=== PATIENT | female | born 1930 | race Caucasian/White ===

== ENCOUNTER 2017-10-04 15:44 | Emergency (ER) | payer MEDICARE, BC ==
[2017-10-04] MEDS ORDERED: ASPIRIN 81 MG TAB.CHEW PO ONE (16:15)
[2017-10-04 16:18] LABS: BASO % 1 % (0-3); EOS % 1 % (0-3); HEMATOCRIT 38.4 % (36.0-47.0); HEMOGLOBIN 12.8 g/dL (12.0-15.5); LYMPH # 3.3 x10^3/uL (1.0-4.8); LYMPH % 43 % (24-48); MEAN CORPUSCULAR HEMOGLOBIN 31 pg (25-35); MEAN CORPUSCULAR HGB CONC 33 g/dL (31-37); MEAN CORPUSCULAR VOLUME 94 fL (79-100); MONO # 1.2 x10^3/uL (0.0-1.1); MONO % 16 % (0-9); NEUT % 40 % (31-73); PLATELET COUNT 194 x10^3/uL (140-400); RED BLOOD COUNT 4.11 x10^6/uL (3.50-5.40); RED CELL DISTRIBUTION WIDTH 16.2 % (11.5-14.5); WHITE BLOOD COUNT 7.6 x10^3/uL (4.0-11.0)
[2017-10-04 16:32] LABS: ALBUMIN 3.9 g/dL (3.4-5.0); ALBUMIN/GLOBULIN RATIO 1.3 (1.0-1.7); CREATININE 0.9 mg/dL (0.6-1.0); GFR 59.5; POTASSIUM 4.2 mmol/L (3.5-5.1); TOTAL BILIRUBIN 0.4 mg/dL (0.2-1.0)
--- NOTE | 2017-10-04 16:36 | PHYS DOC ---
Adult General Chief Complaint Chief Complaint: CHEST PAIN HPI HPI 86-year-old female presents with intermittent chest pain today that she describes as a burning sensation that starts in her lower chest and radiates up in her throat. She denies shortness of breath or diaphoresis. Episodes last for about 10 minutes each. She has been having difficulty with belching lately. She has had a history of GERD that she treats intermittently with Tums. She does have omeprazole, but has not been taking it. She has been eating and drinking normally. She denies fever or chills. She has no history of heart trouble. Review of Systems Review of Systems Constitutional: Denies fever or chills [] Eyes: Denies change in visual acuity, redness, or eye pain [] HENT: Denies nasal congestion or sore throat [] Respiratory: Denies cough or shortness of breath [] Cardiovascular: No additional information not addressed in HPI [] GI: Denies vomiting, bloody stools or diarrhea. Some upper abdominal discomfort. [] : Denies dysuria or hematuria [] Musculoskeletal: Denies back pain or joint pain [] Integument: Denies rash or skin lesions [] Neurologic: Denies headache, focal weakness or sensory changes [] Endocrine: Denies polyuria or polydipsia [] All other systems were reviewed and found to be within normal limits, except as documented in this note. Current Medications Current Medications Current Medications Medications (Trade) Dose Ordered Sig/[facility] Start Time Stop Time Status Last Admin Dose Admin Aspirin (Children'S Aspirin) 324 mg 1X ONCE 10/04/17 16:15 10/04/17 16:16 UNV 10/04/17 16:22 324 MG Allergies Allergies Allergies Coded Allergies Type Severity Reaction Last Updated Verified No Known Drug Allergies 10/04/17 No Physical Exam Physical Exam Constitutional: Well developed, well nourished, no acute distress, non-toxic appearance. [] HENT: Normocephalic, atraumatic, bilateral external ears normal, oropharynx moist, no oral exudates, nose normal. [] Eyes: PERRLA, EOMI, conjunctiva normal, no discharge. [] Neck: Normal range of motion, no tenderness, supple, no stridor. [] Cardiovascular:Heart rate regular rhythm, no murmur [] Lungs & Thorax: Bilateral breath sounds clear to auscultation [] Abdomen: Bowel sounds normal, soft, no tenderness, no masses, no pulsatile masses. [] Skin: Warm, dry, no erythema, no rash. [] Back: No tenderness, no CVA tenderness. [] Extremities: No tenderness, no cyanosis, no clubbing, ROM intact, no edema. [] Neurologic: Alert and oriented X 3, normal motor function, normal sensory function, no focal deficits noted. [] Psychologic: Affect normal, judgement normal, mood normal. [] Current Patient Data Lab Results Laboratory Tests Test 10/04/17 15:53 White Blood Count 7.6 x10^3/uL (4.0-11.0) Red Blood Count 4.11 x10^6/uL (3.50-5.40) Hemoglobin 12.8 g/dL (12.0-15.5) Hematocrit 38.4 % (36.0-47.0) Mean Corpuscular Volume 94 fL (79-100) Mean Corpuscular Hemoglobin 31 pg (25-35) Mean Corpuscular Hemoglobin Concent 33 g/dL (31-37) Red Cell Distribution Width 16.2 % (11.5-14.5) H Platelet Count 194 x10^3/uL (140-400) Neutrophils (%) (Auto) 40 % (31-73) Lymphocytes (%) (Auto) 43 % (24-48) Monocytes (%) (Auto) 16 % (0-9) H Eosinophils (%) (Auto) 1 % (0-3) Basophils (%) (Auto) 1 % (0-3) Neutrophils # (Auto) 3.0 x10^3uL (1.8-7.7) Lymphocytes # (Auto) 3.3 x10^3/uL (1.0-4.8) Monocytes # (Auto) 1.2 x10^3/uL (0.0-1.1) H Eosinophils # (Auto) 0.0 x10^3/uL (0.0-0.7) Basophils # (Auto) 0.0 x10^3/uL (0.0-0.2) Troponin I Quantitative < 0.017 ng/mL (0-0.055) EKG EKG Sinus rhythm, rate 78, first-degree heart block, intraventricular block, no ST elevation or depression.[] Radiology/Procedures Radiology/Procedures EXAM: Chest, single view. HISTORY: Epigastric pain. Chest pain. COMPARISON: 07/15/2016. FINDINGS: A frontal view of the chest is obtained. There is no infiltrate, effusion or pneumothorax. The heart is normal in size for portable technique. There is a 1.2 cm left upper lobe pulmonary nodule, more conspicuous compared to the prior study. There are clips overlying the left breast. There is a chronic appearing fracture deformity involving the left proximal humerus. IMPRESSION: 1. No acute pulmonary finding. 2. 1.2 cm left upper lobe pulmonary nodule. This can be better characterized with a CT. Electronically signed by: Roxanne Leal MD (10/04/2017 4:40 PM) [facility] [place] Course & Med Decision Making Course & Med Decision Making Pertinent Labs and Imaging studies reviewed. (See chart for details) The patient's labs are unremarkable. Her troponin was negative. Her EKG was unremarkable. Her chest x-ray did show a pulmonary nodule. I made patient aware of this finding. She does not believe that she's been told this in the past. I encouraged her to follow-up on this with her primary physician. We also gave the patient a GI cocktail which helped with her symptoms. Her chest discomfort had resolved prior to the GI cocktail and moved down into her upper abdomen. It seems likely that she is having reflux symptoms. I have advised that she restart her omeprazole for 2 weeks to see if it helps with this intermittent burning pain. [] Dragon Disclaimer Dragon Disclaimer This electronic medical record was generated, in whole or in part, using a voice recognition dictation system. Departure Departure: Referrals: BRADLY ARIAS (PCP) ALEM VILLATORO DO October 04, 2017 16:36
--- NOTE | 2017-10-04 16:43 | RAD ---
EXAM: Chest, single view. HISTORY: Epigastric pain. Chest pain. COMPARISON: 07/15/2016. FINDINGS: A frontal view of the chest is obtained. There is no infiltrate, effusion or pneumothorax. The heart is normal in size for portable technique. There is a 1.2 cm left upper lobe pulmonary nodule, more conspicuous compared to the prior study. There are clips overlying the left breast. There is a chronic appearing fracture deformity involving the left proximal humerus. IMPRESSION: 1. No acute pulmonary finding. 2. 1.2 cm left upper lobe pulmonary nodule. This can be better characterized with a CT. Electronically signed by: Roxanne Leal MD (10/04/2017 4:40 PM) [facility] [place]
[2017-10-04 18:10] VITALS: BP 149/87
[2017-10-04] MEDS ORDERED: LIDO:MAALOX 1:1 20 ML SINGLE DOSE. PO ONE (18:15)
--- NOTE | 2017-10-05 19:10 | EKG ---
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
== END 2017-10-04 18:18 | disposition home or self-care (01) ==
LOC: ER 15:44
DX: R91.1 Solitary pulmonary nodule (principal); K21.9 Gastro-esophageal reflux disease without esophagitis
CPT/HCPCS: 36415; 71045; 80053; 83880; 84484; 85025; 93005; 99285-25

== ENCOUNTER 2017-10-08 21:35 | Emergency (ER) | payer MEDICARE, BC ==
[2017-10-08] MEDS ORDERED: ASPIRIN 81 MG TAB.CHEW ONE (21:58)
[2017-10-08] MEDS ORDERED: IV NORMAL SALINE 1,000ML 1,000 ML IV SCH (22:06)
[2017-10-08] MEDS: NITROGLYCERIN SUBLINGUAL 0.4 MG BOTTLE OF 25. SL PRN ×2 (22:07→22:13)
[2017-10-08 22:13] VITALS: BP 156/82
[2017-10-08] MEDS ORDERED: HEPARIN for IV BOLUS 10,000 UNIT/10 ML VIAL. IV ONE (22:15)
[2017-10-08] MEDS ORDERED: HEPARIN 25,000UTS/500ML PREMIX 500 ML IV ONE (22:15)
--- NOTE | 2017-10-08 22:17 | EKG ---
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
[2017-10-08 22:24] LABS: BASO # 0.1 x10^3/uL (0.0-0.2); BASO % 1 % (0-3); EOS % 0 % (0-3); HEMATOCRIT 37.9 % (36.0-47.0); HEMOGLOBIN 12.7 g/dL (12.0-15.5); LYMPH # 3.3 x10^3/uL (1.0-4.8); LYMPH % 31 % (24-48); MEAN CORPUSCULAR HEMOGLOBIN 31 pg (25-35); MEAN CORPUSCULAR HGB CONC 34 g/dL (31-37); MEAN CORPUSCULAR VOLUME 93 fL (79-100); MONO # 1.7 x10^3/uL (0.0-1.1); MONO % 16 % (0-9); NEUT # 5.5 x10^3uL (1.8-7.7); NEUT % 52 % (31-73); PLATELET COUNT 176 x10^3/uL (140-400); RED BLOOD COUNT 4.09 x10^6/uL (3.50-5.40); RED CELL DISTRIBUTION WIDTH 15.8 % (11.5-14.5); WHITE BLOOD COUNT 10.6 x10^3/uL (4.0-11.0)
[2017-10-08] MEDS ORDERED: ASPIRIN 81 MG TAB.CHEW PO ONE (22:30)
[2017-10-08 22:32] LABS: HEMOGLOBIN ISTAT 12.9 gm/dL; POTASSIUM ISTAT 4.7 mmol/L (3.5-5.0)
[2017-10-08 22:36] LABS: BILIRUBIN,URINE NEG (NEG); CLARITY,URINE CLOUDY; COLOR,URINE YELLOW; GLUCOSE,URINE 250 mg/dL (NEG); NITRITE,URINE NEG (NEG); UROBILINOGEN,URINE 0.2 mg/dL (0.2 mg/dL)
--- NOTE | 2017-10-08 22:36 | PHYS DOC ---
Past History Past Medical History: Cancer, Diabetes, Hypertension Past Surgical History: Appendectomy, Cholecystectomy, Hysterectomy, Other Alcohol Use: None Drug Use: None Adult General Chief Complaint Chief Complaint: CHEST PAIN-CARDIAC NATURE HPI HPI Patient is a 87 year old female who presents with complaint of chest pain. Patient states that her pain has been worsening throughout the day today. The patient states that she started having chest pain naproxen for days ago. The patient was seen in the emergency department at that time and treated for heartburn symptoms. Patient states initially upon treatment her symptoms had improved, however she states that they did not go completely away. The patient states that she has had continued pain throughout the last 4 days but notes that it has been worsening today. Patient describes the pain as a burning dull pain and on my evaluation rates it 9 out of 10. Admits to nausea and shortness of breath. No fever. Patient denies any known history of cardiac disease. Patient does have history of hyperlipidemia, hypertension, and type 2 diabetes mellitus. Review of Systems Review of Systems Constitutional: Denies fever or chills [] Eyes: Denies change in visual acuity, redness, or eye pain [] HENT: Denies nasal congestion or sore throat [] Respiratory: Shortness of breath[] Cardiovascular: Chest pain[] GI: Nausea, denies abdominal pain, vomiting, bloody stools or diarrhea [] : Denies dysuria or hematuria [] Musculoskeletal: Denies back pain or joint pain [] Integument: Denies rash or skin lesions [] Neurologic: Denies headache, focal weakness or sensory changes [] All other systems were reviewed and found to be within normal limits, except as documented in this note. Current Medications Current Medications Current Medications Medications (Trade) Dose Ordered Sig/Giuliano Start Time Stop Time Status Last Admin Dose Admin Aspirin (Children'S Aspirin) 324 mg 1X ONCE 10/08/17 22:15 10/08/17 22:16 UNV Heparin Sodium (Porcine) (Heparin Sodium) 4,000 unit 1X ONCE 10/08/17 22:15 10/08/17 22:16 UNV Heparin Sodium/ Dextrose 500 ml @ 0 mls/hr 1X ONCE 10/08/17 22:15 10/08/17 22:16 UNV Nitroglycerin (Nitrostat) 0.4 mg PRN Q5MIN PRN 10/08/17 22:15 10/09/17 22:14 UNV Sodium Chloride 1,000 ml @ 125 mls/hr Q8H 10/08/17 22:06 10/09/17 06:05 UNV Allergies Allergies Allergies Coded Allergies Type Severity Reaction Last Updated Verified No Known Drug Allergies 10/04/17 No Physical Exam Physical Exam Constitutional: Alert, afebrile, appears in [id number] discomfort. [] HENT: Normocephalic, atraumatic, bilateral external ears normal, oropharynx moist, no oral exudates, nose normal. [] Eyes: PERRLA, EOMI, conjunctiva normal, no discharge. [] Neck: Normal range of motion, no tenderness, supple, no stridor. [] Cardiovascular:Heart rate regular rhythm, no murmur [] Lungs & Thorax: Bilateral breath sounds clear to auscultation [] Abdomen: Bowel sounds normal, soft, no tenderness, no masses, no pulsatile masses. [] Skin: Warm, dry, no erythema, no rash. [] Back: No tenderness, no CVA tenderness. [] Extremities: No tenderness, no cyanosis, no clubbing, ROM intact, no edema. [] Neurologic: Alert and oriented X 3, normal motor function, normal sensory function, no focal deficits noted. [] Current Patient Data Vital Signs Vital Signs Date Time Temp Pulse Resp B/P (MAP) Pulse Ox O2 Delivery O2 Flow Rate FiO2 10/08/17 22:13 84 156/82 Lab Results Laboratory Tests Test 10/08/17 21:48 10/08/17 22:07 10/08/17 22:11 10/08/17 22:25 Urine Collection Type Unknown Urine Color Yellow Urine Clarity Cloudy Urine pH 7.0 Urine Specific Justice 1.015 Urine Protein Trace Urine Glucose (UA) 250 mg/dL Urine Ketones (Stick) Neg mg/dL Urine Blood Trace Urine Nitrite Neg Urine Bilirubin Neg Urine Urobilinogen Dipstick 0.2 mg/dL Urine Leukocyte Esterase Large Urine RBC 3-5 /HPF Urine WBC 11-20 /HPF Urine Squamous Epithelial Cells Mod /LPF Urine Bacteria Many /HPF White Blood Count 10.6 x10^3/uL Red Blood Count 4.09 x10^6/uL Hemoglobin 12.7 g/dL Hematocrit 37.9 % Mean Corpuscular Volume 93 fL Mean Corpuscular Hemoglobin 31 pg Mean Corpuscular Hemoglobin Concent 34 g/dL Red Cell Distribution Width 15.8 % Platelet Count 176 x10^3/uL Neutrophils (%) (Auto) 52 % Lymphocytes (%) (Auto) 31 % Monocytes (%) (Auto) 16 % Eosinophils (%) (Auto) 0 % Basophils (%) (Auto) 1 % Neutrophils # (Auto) 5.5 x10^3uL Lymphocytes # (Auto) 3.3 x10^3/uL Monocytes # (Auto) 1.7 x10^3/uL Eosinophils # (Auto) 0.0 x10^3/uL Basophils # (Auto) 0.1 x10^3/uL Sodium Level 132 mmol/L Potassium Level 3.8 mmol/L Chloride Level 95 mmol/L Carbon Dioxide Level 26 mmol/L Anion Gap 11 12 mmol/L Blood Urea Nitrogen 12 mg/dL Creatinine 0.9 mg/dL Estimated GFR (Cockcroft-Gault) 59.4 BUN/Creatinine Ratio 13 Glucose Level 205 mg/dL 208 mg/dL Calcium Level 8.8 mg/dL Magnesium Level 2.1 mg/dL Total Bilirubin 0.5 mg/dL Aspartate Amino Transf (AST/SGOT) 86 U/L Alanine Aminotransferase (ALT/SGPT) 29 U/L Alkaline Phosphatase 97 U/L Creatine Kinase 584 U/L Creatine Kinase MB (Mass) 44.7 ng/mL Creatine Kinase MB Relative Index 7.7 % Troponin I Quantitative 8.647 ng/mL Total Protein 7.0 g/dL Albumin 3.8 g/dL Albumin/Globulin Ratio 1.2 Bedside Troponin I 3.87 ng/ml Bedside Hemoglobin 12.9 gm/dL Bedside Hematocrit 38 % Bedside Sodium 129 mmol/L Bedside Potassium 4.7 mmol/L Bedside Chloride 94 mmol/L Bedside Total CO2 28 mmol/L Bedside Blood Urea Nitrogen 17 mg/dL Bedside Creatinine 0.8 mg/dL Bedside Ionized Calcium (Genoveva) 1.00 mmol/L Current Medications Medications (Trade) Dose Ordered Sig/Giuliano Route PRN Reason Start Time Stop Time Status Last Admin Dose Admin Aspirin (Children'S Aspirin) 81 mg STK-MED ONCE .ROUTE 10/08/17 21:58 10/08/17 21:59 DC Aspirin (Children'S Aspirin) 324 mg 1X ONCE PO 10/08/17 22:30 10/08/17 22:31 DC 10/08/17 22:00 Nitroglycerin (Nitrostat) 0.4 mg PRN Q5MIN PRN SL CP RATING > 1/10 10/08/17 22:15 10/09/17 22:14 10/08/17 22:13 Heparin Sodium (Porcine) (Heparin Sodium) 4,000 unit 1X ONCE IV 10/08/17 22:15 10/08/17 22:20 DC Heparin Sodium/ Dextrose 500 ml @ 0 mls/hr 1X ONCE IV 10/08/17 22:15 10/08/17 22:20 DC Sodium Chloride 1,000 ml @ 125 mls/hr Q8H IV 10/08/17 22:06 10/09/17 06:05 EKG EKG Interpreted by me: Heart rate 82, sinus rhythm, prolonged [place] interval, leftward axis, ST elevations in V1 through V3, ST depressions in V4 through V6 knee from previous EKG on October 04, 2017, findings concerning for acute ST segment elevation myocardial infarction[] Radiology/Procedures Radiology/Procedures Not performed[] Course & Med Decision Making Course & Med Decision Making Pertinent Labs and Imaging studies reviewed. (See chart for details) Patient activated as a code STEMI from the emergency department at 2158. I spoke with Dr. Garcia regarding patient who agreed with emergent transfer to [facility] for further evaluation. Patient was given full strength aspirin in the emergency department and treated with nitroglycerin and morphine. The patient was transferred by [facility] emergently to [facility]. Care of patient accepted by Dr. Gricel Zamora. Critical care time excluding procedures: 30 minutes Dragon Disclaimer Dragon Disclaimer This electronic medical record was generated, in whole or in part, using a voice recognition dictation system. Departure Departure: Impression: Primary Impression: STEMI (ST elevation myocardial infarction) Disposition: XFER SHT-TRM HOSP Condition: CRITICAL Referrals: BRADLY ARIAS (PCP) Problem Qualifiers Primary Impression: STEMI (ST elevation myocardial infarction) Involved coronary artery: unspecified coronary artery Qualified Codes: I21.3 - ST elevation (STEMI) myocardial infarction of unspecified site KAYLA AHUJA MD October 08, 2017 22:36
[2017-10-08 22:37] LABS: BACTERIA,URINE MANY /HPF (0-FEW); SQUAMOUS EPITHELIAL CELL,UR MOD /LPF
[2017-10-08 22:48] LABS: ALBUMIN 3.8 g/dL (3.4-5.0); ALBUMIN/GLOBULIN RATIO 1.2 (1.0-1.7); CALCIUM 8.8 mg/dL (8.5-10.1); CREATININE 0.9 mg/dL (0.6-1.0); GFR 59.4; MAGNESIUM 2.1 mg/dL (1.8-2.4); POTASSIUM 3.8 mmol/L (3.5-5.1); TOTAL BILIRUBIN 0.5 mg/dL (0.2-1.0)
== END 2017-10-08 22:20 | disposition short-term general hospital (02) ==
LOC: ER 21:35
DX: I21.3 ST elevation (STEMI) myocardial infarction of unspecified site (principal); E11.9 Type 2 diabetes mellitus without complications; I10 Essential (primary) hypertension; E78.5 Hyperlipidemia, unspecified
CPT/HCPCS: 36415; 80047; 80053; 81001; 82553; 83735; 84484; 85025; 87086; 93005; 99291-25

== ENCOUNTER → 2017-10-14 | Outpatient (CLI) | payer MEDICARE, BC ==
[2017-10-08 22:13] VITALS: BP 156/82
[~2017-10-14] MED LIST: ACET-704 PO; ASPI-630 PO; ATOR40TA59 PO; GLIP5TAB10 PO; LOSA1TAB19 PO; MAGN400T22 PO; METF500T5 PO; METO25TA4 PO; TICA90TA PO
--- NOTE | 2017-10-14 10:34 | RAD ---
CT chest without intravenous contrast History: Pulmonary nodule. Comparison: Chest radiograph October 04, 2017. Technique: Helical CT of the chest was performed without intravenous contrast. Exposure: One or more of the following individualized dose reduction techniques were utilized for this examination: 1. Automated exposure control 2. Adjustment of the mA and/or kV according to patient size 3. Use of iterative reconstruction technique Findings: Visualized thyroid is symmetric. Trachea and mainstem bronchi appear patent. No mediastinal lymphadenopathy is seen. Aortic atherosclerosis is present. Thoracic aorta demonstrates normal caliber. Coronary artery calcifications are seen. No pericardial thickening is identified. Cardiac chambers do not appear enlarged. Small hiatal hernia is seen. No pneumothorax or pleural effusion is identified. No acute airspace disease is seen. Left apex demonstrates a somewhat irregular soft tissue pulmonary nodule which measures 10 mm in maximum axial dimension by 12 mm in craniocaudal dimension (series 2 image 26). At the same level, in the superior segment of the left lower lobe, there is an additional 10 mm soft tissue pulmonary nodule. Left apex demonstrates 6 mm soft tissue pulmonary nodule (series 2 image 11). Left upper lobe demonstrates additional 2 mm pulmonary nodule (series 2 image 17). Right lower lobe adjacent to the major fissure demonstrates 2 mm soft tissue pulmonary nodule (series 2 image 60). 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 Impression: 1. Left upper lobe demonstrates irregular pulmonary nodule measuring millimeter in maximum dimension. Additional, smaller pulmonary nodules are seen scattered within both lungs. 2. By Fleischner 2017 guidelines, recommend a follow-up chest CT in 3 months. Electronically signed by: Tao Johnston MD (10/14/2017 10:30 AM) [facility]
--- NOTE | 2017-10-15 17:25 | HP ---
ADMIT DATE: 10/14/2017 HISTORY OF PRESENT ILLNESS: This is an 87-year-old female patient who was seen at her primary care physician, Yaquelin Escobedo, with a complaint of chest discomfort. She apparently was seen about a week ago with chest pain in the [facility] Emergency Room and was diagnosed with acute ST segment elevation myocardial infarction, and was taken straight to the [facility] where she underwent stent deployment by Dr. Garcia and was discharged last Friday and since then she has not been doing well. She continued to have complaint of chest discomfort associated with shortness of breath. The discomfort is constant, made worse by exertion. She denied any nausea or vomiting. Denied any diaphoresis. She does have some discomfort in her right arm also. She also has had multiple loose bowel movements; however, she said that they changed her metformin from 1000 mg to 500 mg, although it was not on her prescription or the printed paper that she saw me. It was not specific whether they changed it to short acting or extended release form. She has also received multiple antibiotic courses for recurrent urinary tract infection. The last one was at the end of July and basically was admitted for further evaluation, to do 3 sets of cardiac enzyme and EKG and to consult the bag maker. PAST MEDICAL HISTORY: Significant for coronary artery disease, status post myocardial infarction, status post PCI with stent deployment, hypertension, hyperlipidemia, type 2 diabetes, recurrent UTIs, osteoarthritis, lumbar stenosis. She has also history of breast cancer. PAST SURGICAL HISTORY: Significant for PCI with stent deployment, back surgery, mastectomy, cholecystectomy, appendectomy, total abdominal hysterectomy, bilateral salpingo-oophorectomy. She has right fibular fracture, status post open reduction and internal fixation. She underwent colonoscopy twice. ALLERGIES: She has no known drug allergies. She is apparently intolerant to Celebrex. MEDICATIONS: She is currently on Brilinta 90 mg twice a day, atorvastatin calcium 40 mg at bedtime, metoprolol tartrate 25 mg half a tablet twice a day, losartan/hydrochlorothiazide 50/12.5 one tablet once a day, aspirin 81 mg once a day, Tylenol with Codeine 1 tablet every 4-6 hours, magnesium oxide 400 mg daily, metformin 500 mg twice a day, and glipizide 5 mg twice a day. FAMILY HISTORY: She has 2 living sisters and her younger sister has some form of hematological malignancy. She has 2 brothers, both , one at the age of 41 because of liver cancer and her oldest brother at the age of 88 because of old age. Father at the age of 81 because of myocardial infarction. Mother at the age of 88 because of old age. SOCIAL HISTORY: She is , has 1 daughter and 1 son. Has never smoked and does not drink alcohol. 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 REVIEW OF SYSTEMS: She denied any blurring of vision. She does have bilateral cataract extraction, but denied any glaucoma or macular degeneration. Denied any earache, tinnitus, or sensorineural deafness. Denied nosebleeds, stuffy nose, or postnasal drip. Denied any sore throat, sore tongue, toothache, hoarseness of voice, or difficulty swallowing. Denied any nausea or vomiting. She did complain of diarrhea, but no constipation. Denied any hematemesis, melena, or hematochezia. Denied any dysuria, frequency, or hematuria. Did complain of chest discomfort and shortness of breath, but denied any orthopnea or paroxysmal nocturnal dyspnea. She uses only 1 pillow. She is able to walk with a walker or a cane. PHYSICAL EXAMINATION: GENERAL: On examining her, she was resting slightly propped up in bed, in no apparent respiratory distress, slightly pale, but no jaundice, cyanosis, or thyromegaly. No jugular venous distention. No limb edema. VITAL SIGNS: Her heart rate was 84, blood pressure was 171/79, temperature was 97.6, respiratory rate 20, and oxygen saturation was 98% on room air. HEAD, EYES, EARS, NOSE AND THROAT: Showed normocephalic, atraumatic. NECK: Supple. HEART: Showed normal first and second heart sounds. No gallop, rub, or murmur. CHEST: Clear to auscultation. No crepitation or rhonchi. ABDOMEN: Slightly distended, soft, nontender. No guarding or rigidity. No organomegaly. Hernial orifice intact. Bowel sounds normal. NEUROLOGIC: She was awake, alert, responding appropriately. All cranial nerves intact. She moves extremities without difficulty. She ambulates with a walker or a cane. LABORATORY DATA: She did have a CT scan of the chest done yesterday, which showed left upper lobe demonstrates irregular pulmonary nodule measuring a millimeter in maximum dimension. Additional smaller pulmonary nodules are seen scattered in both lung coy. There is no visualized thyroid, symmetric trachea, main stem bronchi appears to be patent, no mediastinal lymphadenopathy is seen, aortic atherosclerosis is present. Thoracic aorta demonstrates normal caliber coronary artery. Calcifications are seen. No pericardial thickening is identified. Cardiac chambers do not appear to be enlarged. Small hiatal hernia is seen. No pneumothorax or pleural effusion is identified. No acute airspace disease is seen. Left apex demonstrates a somewhat irregular left soft tissue pulmonary nodule, which measures 10 mm in maximum axial dimension x 12 mm in the craniocaudal dimension at the same level in the superior segment of the left lower lobe. There is an additional 10 mm soft tissue pulmonary nodule. Left apex demonstrates 6 mm soft tissue and pulmonary nodule. Left upper lobe demonstrates additional 2 mm pulmonary nodule. Right lower lobe adjacent to the major fissure demonstrates 2 mm soft tissue pulmonary nodule. Yaquelin Escobedo stated that she has done some lab work and they asked her to send all her lab work to us, but she has apparently UA done in the office there which showed the urine was yellow, cloudy with a specific gravity of 1.010, 2+ leukocyte, positive for nitrite, the pH was 6. The urine was negative for albumin, sugar, ketones. I am not sure that this shows any evidence that she has active urinary tract infection. I would probably hold on antibiotic for now. We will do 3 sets of cardiac enzyme and check her fasting lipid profile. ____ Cardiology team continued all her medications and maybe hold the metformin in case they are planning to do another cardiac catheterization. JALEN WIGGINS MD DR: HARITHA/barrie JOB#: [id number] / [id number]
== END | disposition home or self-care (01) ==
LOC: CT 08:47
PROVIDERS: ATTEND Physician Assistant Medical
DX: M51.34 Other intervertebral disc degeneration, thoracic region (principal); I10 Essential (primary) hypertension; E11.9 Type 2 diabetes mellitus without complications; R91.8 Other nonspecific abnormal finding of lung field
CPT/HCPCS: 71250

== ENCOUNTER 2017-10-15 14:24 | Inpatient (IN) | payer MEDICARE, BC ==
[~2017-10-15] VITALS: Ht 172.7 cm; Wt 72.8 kg
[2017-10-15 15:02] VITALS: BP 171/79
[2017-10-15] MEDS ORDERED: TICA90TA PO (16:08)
[2017-10-15] MEDS ORDERED: METO25TA4 PO (16:08)
[2017-10-15] MEDS ORDERED: ATOR40TA59 PO (16:08)
[2017-10-15] MEDS ORDERED: ASPI-630 PO (16:08)
[2017-10-15] MEDS ORDERED: ACET-704 PO (16:08)
[2017-10-15] MEDS ORDERED: METF500T5 PO (16:08)
[2017-10-15] MEDS ORDERED: MAGN400T22 PO (16:08)
[2017-10-15] MEDS ORDERED: LOSA1TAB19 PO (16:08)
[2017-10-15] MEDS ORDERED: GLIP5TAB10 PO (16:08)
[2017-10-15] MEDS ORDERED: DEXTROSE 50% 25 GM / 50ML DISP.SYRIN. IV PRN (16:45)
--- NOTE | 2017-10-15 16:58 | EKG ---
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
[2017-10-15] MEDS: INSULIN LISPRO 300 UNITS/3 ML INSULN.PEN. SQ SCH (17:00)
[2017-10-15] MEDS ORDERED: ACETAMINOPHEN/CODEINE 300/30MG TABLET PO PRN (17:00)
[2017-10-15 17:03] LABS: HEMATOCRIT 37.2 % (36.0-47.0); HEMOGLOBIN 12.5 g/dL (12.0-15.5); RED CELL DISTRIBUTION WIDTH 15.3 % (11.5-14.5); WHITE BLOOD COUNT 6.6 x10^3/uL (4.0-11.0)
[2017-10-15 17:14] LABS: ALBUMIN 3.6 g/dL (3.4-5.0); CALCIUM 8.8 mg/dL (8.5-10.1); CREATININE 0.7 mg/dL (0.6-1.0); GFR 79.3; MAGNESIUM 1.9 mg/dL (1.8-2.4); POTASSIUM 4.5 mmol/L (3.5-5.1); TOTAL BILIRUBIN 0.4 mg/dL (0.2-1.0); TOTAL PROTEIN 7.1 g/dL (6.4-8.2)
--- NOTE | 2017-10-15 17:42 | CONS ---
DATE OF CONSULTATION: 10/15/2017 REASON FOR CONSULTATION: Fatigued after recent PCI. HISTORY OF PRESENT ILLNESS: Please refer to prior recent evaluation for full H and P. Briefly, the patient is an 87-year-old woman who had a ST elevation myocardial infarction with a mid LAD subtotal occlusion last week and was treated with a stent. She had an ejection fraction of 45% with septal akinesis. After discharge from the hospital, she has had significant improvement in her chest pain, which was quite debilitating prior to her presentation for the STEMI. Nonetheless, she continues to have intermittent episodes of chest discomfort that are not lifestyle limiting necessarily, but she has had decreased appetite and an increase in her diarrhea over the last several days. Denies any vidya syncope or palpitations. She has been compliant with her medication regimen. PAST MEDICAL HISTORY: Coronary artery disease. SOCIAL HISTORY: The patient is . Denies any alcohol, tobacco or illicit drug use. ALLERGIES: No known drug allergies. PHYSICAL EXAMINATION: VITAL SIGNS: Stable. GENERAL: She is alert and oriented, no acute distress. HEAD AND NECK: Unremarkable. HEART: Regular rate and rhythm without any murmurs, rubs or gallops. ABDOMEN: Soft, nontender, nondistended. EXTREMITIES: No clubbing, cyanosis or edema. NEUROLOGIC: No focal deficits. MUSCULOSKELETAL: No trauma. DIAGNOSTIC STUDIES: Currently pending. 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 There are otherwise nonspecific changes. IMPRESSION: 1. Fatigue, etiology unclear, likely secondary to diarrhea and poor p.o. intake. 2. Intermittent nonspecific chest pain, likely related to diffuse small vessel disease. 3. 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 4. Failure to thrive. RECOMMENDATIONS: 1. We will obtain a limited repeat echocardiogram to ensure there is no significant aneurysm and rule out any effusion. 2. Await laboratory testing and further recommendations pending laboratory evaluation. Thank you for this consultation. AMANDA SOLIS MD DR: INA/barrie JOB#: [id number] / [id number]
[2017-10-15] MEDS: glipiZIDE 5 MG TABLET PO SCH (17:54)
[2017-10-15 18:38] VITALS: BP 162/89
[2017-10-15 19:30] VITALS: BP 149/77
[2017-10-15] MEDS: ATORVASTATIN CALCIUM 20 MG TABLET PO SCH (21:27)
[2017-10-15] MEDS: TICAGRELOR 90 MG TABLET. PO SCH (21:27)
[2017-10-15] MEDS: METOPROLOL TART IMMED RELEASE 25 MG TABLET PO SCH (21:29)
[2017-10-15 23:12] VITALS: BP 131/80
[2017-10-16 05:40] VITALS: BP 160/80
[2017-10-16] MEDS: INSULIN LISPRO 300 UNITS/3 ML INSULN.PEN. SQ SCH ×3 (08:00→17:23)
[2017-10-16] MEDS: ASPIRIN 81 MG TAB.CHEW PO SCH (08:10)
[2017-10-16] MEDS: glipiZIDE 5 MG TABLET PO SCH ×2 (08:10→17:14)
[2017-10-16] MEDS: TICAGRELOR 90 MG TABLET. PO SCH ×2 (08:11→20:54)
[2017-10-16] MEDS: LOSARTAN 50 MG TABLET. PO SCH (08:11)
[2017-10-16] MEDS: METOPROLOL TART IMMED RELEASE 25 MG TABLET PO SCH ×2 (08:12→20:08)
[2017-10-16] MEDS: MAGNESIUM OXIDE 400 MG TABLET PO SCH ×2 (08:12→08:16)
[2017-10-16] MEDS: hydroCHLOROthiazide 12.5 MG CAPSULE PO SCH (08:12)
[2017-10-16 10:28] VITALS: BP 120/69
--- NOTE | 2017-10-16 11:33 | PDOC ---
PROGRESS NOTES Assessment 1. Fatigue, etiology unclear, likely secondary to diarrhea and poor p.o. intake. She reports improving diarrhea and tolerating oral intake without problems this am. mgmt per pcp. 2. Intermittent nonspecific chest pain, likely related to diffuse small vessel disease. Pain free today. 3. 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 Mild troponin elevations. Currently angina free. 4. Failure to thrive. - per pcp Subjective feeling better today. diarrhea improving and she reports only one stool today. she reports pressure in upper abdomen resolved this am. no dyspnea, palpitations or lightheadedness. Objective Vital Signs Date Time Temp Pulse Resp B/P (MAP) Pulse Ox O2 Delivery O2 Flow Rate FiO2 10/16/17 10:28 97.3 78 18 120/69 (86) 96 Room Air Intake and Output 10/16/17 07:00 Intake Total 240 ml Output Total 300 ml Balance -60 ml Intake Oral 240 ml Output Urine Total 300 ml # Voids 2 Abdomen: Normal bowel sounds, Soft, No tenderness Heart: Regular rate, Normal S1, Normal S2 Extremities: No cyanosis, Normal pulses General: Alert, Oriented X3, Cooperative Lungs: Clear to auscultation Neuro: Normal speech Psych/Mental Status: Mental status NL, Mood NL Review of Relevant I have reviewed the following items yusuf (where applicable) has been applied. Labs Laboratory Tests Test 10/15/17 16:42 10/15/17 16:45 10/15/17 20:50 10/16/17 05:00 Glucose (Fingerstick) 122 mg/dL (70-99) White Blood Count 6.6 x10^3/uL (4.0-11.0) Red Blood Count 4.00 x10^6/uL (3.50-5.40) Hemoglobin 12.5 g/dL (12.0-15.5) Hematocrit 37.2 % (36.0-47.0) Mean Corpuscular Volume 93 fL (79-100) Mean Corpuscular Hemoglobin 31 pg (25-35) Mean Corpuscular Hemoglobin Concent 34 g/dL (31-37) Red Cell Distribution Width 15.3 % (11.5-14.5) Platelet Count 206 x10^3/uL (140-400) Sodium Level 133 mmol/L (136-145) Potassium Level 4.5 mmol/L (3.5-5.1) Chloride Level 98 mmol/L (98-107) Carbon Dioxide Level 26 mmol/L (21-32) Anion Gap 9 (6-14) Blood Urea Nitrogen 12 mg/dL (7-20) Creatinine 0.7 mg/dL (0.6-1.0) Estimated GFR (Cockcroft-Gault) 79.3 BUN/Creatinine Ratio 17 (6-20) Glucose Level 124 mg/dL (70-99) Calcium Level 8.8 mg/dL (8.5-10.1) Magnesium Level 1.9 mg/dL (1.8-2.4) Total Bilirubin 0.4 mg/dL (0.2-1.0) Aspartate Amino Transf (AST/SGOT) 45 U/L (15-37) Alanine Aminotransferase (ALT/SGPT) 47 U/L (14-59) Alkaline Phosphatase 105 U/L (46-116) Troponin I Quantitative 0.676 ng/mL (0-0.055) 0.796 ng/mL (0-0.055) 0.706 ng/mL (0-0.055) Total Protein 7.1 g/dL (6.4-8.2) Albumin 3.6 g/dL (3.4-5.0) Albumin/Globulin Ratio 1.0 (1.0-1.7) Test 10/16/17 07:57 Glucose (Fingerstick) 139 mg/dL (70-99) Medications Current Medications Acetaminophen/ Codeine Phosphate (Tylenol #3) 1 tab PRN Q4HRS PRN PO PAIN; Start 10/15/17 at 17:00 Metoprolol Tartrate (Lopressor) 12.5 mg BID PO Last administered on 10/16/17at 08:12; Start 10/15/17 at 21:00 Ticagrelor (Brilinta) 90 mg BID PO Last administered on 10/16/17at 08:11; Start 10/15/17 at 21:00 Aspirin (Children'S Aspirin) 81 mg DAILYWBKFT PO Last administered on at 08:10; Start 10/16/17 at 08:00 Atorvastatin Calcium (Lipitor) 40 mg QHS PO Last administered on 10/15/17at 21: 27; Start 10/15/17 at 21:00 Glipizide (Glucotrol) 5 mg BIDBFRMEAL PO Last administered on 10/16/17at 08:10; Start 10/15/17 at 17:00 Losartan Potassium (Cozaar) 50 mg DAILY PO Last administered on 10/16/17at 08:11 ; Start 10/16/17 at 09:00 Magnesium Oxide (Magnesium Oxide) 400 mg DAILY PO ; Start 10/16/17 at 09:00 Insulin Human Lispro (HumaLOG) 0-5 UNITS TIDWMEALS SQ ; Start 10/15/17 at 17:00 Dextrose 12.5 gm PRN Q15MIN PRN IV SEE COMMENTS; Start 10/15/17 at 16:45 Hydrochlorothiazide (Microzide) 12.5 mg DAILY PO Last administered on at 08:12; Start 10/16/17 at 09:00 Active Scripts Active Reported Tylenol With Codeine #3 Tablet (Acetaminophen With Codeine) 1 Each Tablet 1 Tab PO Q4-6HRS Brilinta (Ticagrelor) 90 Mg Tablet 90 Mg PO Metoprolol Tartrate 25 Mg Tablet 0.5 Tab PO BID Metformin Hcl 500 Mg Tablet 1 Tab PO BID Mag-Oxide (Magnesium Oxide) 400 Mg Tablet 1 Tab PO DAILY Losartan-Hctz 50-12.5 Mg Tab (Losartan/Hydrochlorothiazide) 1 Each Tablet 1 Tab PO DAILY Glipizide 5 Mg Tablet 1 Tab PO BID Atorvastatin Calcium 40 Mg Tablet 1 Tab PO DAILY Aspirin 81 Mg Tab.chew 81 Mg PO DAILY Vitals/I & O Vital Sign - Last 24 Hours 10/15/17 10/15/17 10/15/17 10/15/17 15:02 18:38 19:30 21:29 Temp 97.6 97.7 97.9 Pulse 84 97 86 86 Resp 20 20 16 B/P (MAP) 171/79 (109) 162/89 (113) 149/77 (101) 149/77 Pulse Ox 98 96 97 O2 Delivery Room Air Room Air Room Air 10/15/17 10/16/17 10/16/17 10/16/17 23:12 05:40 08:11 08:12 Temp 98.4 98.2 Pulse 76 78 78 78 Resp 18 14 B/P (MAP) 131/80 (97) 160/80 (106) 160/80 160/80 Pulse Ox 97 95 O2 Delivery Room Air Room Air 10/16/17 10:28 Temp 97.3 Pulse 78 Resp 18 B/P (MAP) 120/69 (86) Pulse Ox 96 O2 Delivery Room Air Intake and Output 10/15/17 10/15/17 10/16/17 15:00 23:00 07:00 Intake Total 240 ml Output Total 300 ml Balance -60 ml EVERETTE PRATER APRN October 16, 2017 11:33
--- NOTE | 2017-10-16 12:41 | HP ---
ADMIT DATE: 10/14/2017 HISTORY OF PRESENT ILLNESS: This is an 87-year-old female patient who was seen at her primary care physician, Yaquelin Escobedo, with a complaint of chest discomfort. She apparently was seen about a week ago with chest pain in the [facility] Emergency Room and was diagnosed with acute ST segment elevation myocardial infarction, and was taken straight to the [facility] where she underwent stent deployment by Dr. Garcia and was discharged last Friday and since then she has not been doing well. She continued to have complaint of chest discomfort associated with shortness of breath. The discomfort is constant, made worse by exertion. She denied any nausea or vomiting. Denied any diaphoresis. She does have some discomfort in her right arm also. She also has had multiple loose bowel movements; however, she said that they changed her metformin from 1000 mg to 500 mg, although it was not on her prescription or the printed paper that she saw me. It was not specific whether they changed it to short acting or extended release form. She has also received multiple antibiotic courses for recurrent urinary tract infection. The last one was at the end of July and basically was admitted for further evaluation, to do 3 sets of cardiac enzyme and EKG and to consult the taffy candy maker. PAST MEDICAL HISTORY: Significant for coronary artery disease, status post myocardial infarction, status post PCI with stent deployment, hypertension, hyperlipidemia, type 2 diabetes, recurrent UTIs, osteoarthritis, lumbar stenosis. She has also history of breast cancer. PAST SURGICAL HISTORY: Significant for PCI with stent deployment, back surgery, mastectomy, cholecystectomy, appendectomy, total abdominal hysterectomy, bilateral salpingo-oophorectomy. She has right fibular fracture, status post open reduction and internal fixation. She underwent colonoscopy twice. ALLERGIES: She has no known drug allergies. She is apparently intolerant to Celebrex. MEDICATIONS: She is currently on Brilinta 90 mg twice a day, atorvastatin calcium 40 mg at bedtime, metoprolol tartrate 25 mg half a tablet twice a day, losartan/hydrochlorothiazide 50/12.5 one tablet once a day, aspirin 81 mg once a day, Tylenol with Codeine 1 tablet every 4-6 hours, magnesium oxide 400 mg daily, metformin 500 mg twice a day, and glipizide 5 mg twice a day. FAMILY HISTORY: She has 2 living sisters and her younger sister has some form of hematological malignancy. She has 2 brothers, both , one at the age of 41 because of liver cancer and her oldest brother at the age of 88 because of old age. Father at the age of 81 because of myocardial infarction. Mother at the age of 88 because of old age. SOCIAL HISTORY: She is , has 1 daughter and 1 son. Has never smoked and does not drink alcohol. 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 REVIEW OF SYSTEMS: She denied any blurring of vision. She does have bilateral cataract extraction, but denied any glaucoma or macular degeneration. Denied any earache, tinnitus, or sensorineural deafness. Denied nosebleeds, stuffy nose, or postnasal drip. Denied any sore throat, sore tongue, toothache, hoarseness of voice, or difficulty swallowing. Denied any nausea or vomiting. She did complain of diarrhea, but no constipation. Denied any hematemesis, melena, or hematochezia. Denied any dysuria, frequency, or hematuria. Did complain of chest discomfort and shortness of breath, but denied any orthopnea or paroxysmal nocturnal dyspnea. She uses only 1 pillow. She is able to walk with a walker or a cane. PHYSICAL EXAMINATION: GENERAL: On examining her, she was resting slightly propped up in bed, in no apparent respiratory distress, slightly pale, but no jaundice, cyanosis, or thyromegaly. No jugular venous distention. No limb edema. VITAL SIGNS: Her heart rate was 84, blood pressure was 171/79, temperature was 97.6, respiratory rate 20, and oxygen saturation was 98% on room air. HEAD, EYES, EARS, NOSE AND THROAT: Showed normocephalic, atraumatic. NECK: Supple. HEART: Showed normal first and second heart sounds. No gallop, rub, or murmur. CHEST: Clear to auscultation. No crepitation or rhonchi. ABDOMEN: Slightly distended, soft, nontender. No guarding or rigidity. No organomegaly. Hernial orifice intact. Bowel sounds normal. NEUROLOGIC: She was awake, alert, responding appropriately. All cranial nerves intact. She moves extremities without difficulty. She ambulates with a walker or a cane. LABORATORY DATA: She did have a CT scan of the chest done yesterday, which showed left upper lobe demonstrates irregular pulmonary nodule measuring a millimeter in maximum dimension. Additional smaller pulmonary nodules are seen scattered in both lung coy. There is no visualized thyroid, symmetric trachea, main stem bronchi appears to be patent, no mediastinal lymphadenopathy is seen, aortic atherosclerosis is present. Thoracic aorta demonstrates normal caliber coronary artery. Calcifications are seen. No pericardial thickening is identified. Cardiac chambers do not appear to be enlarged. Small hiatal hernia is seen. No pneumothorax or pleural effusion is identified. No acute airspace disease is seen. Left apex demonstrates a somewhat irregular left soft tissue pulmonary nodule, which measures 10 mm in maximum axial dimension x 12 mm in the craniocaudal dimension at the same level in the superior segment of the left lower lobe. There is an additional 10 mm soft tissue pulmonary nodule. Left apex demonstrates 6 mm soft tissue and pulmonary nodule. Left upper lobe demonstrates additional 2 mm pulmonary nodule. Right lower lobe adjacent to the major fissure demonstrates 2 mm soft tissue pulmonary nodule. Yaquelin Escobedo stated that she has done some lab work and they asked her to send all her lab work to us, but she has apparently UA done in the office there which showed the urine was yellow, cloudy with a specific gravity of 1.010, 2+ leukocyte, positive for nitrite, the pH was 6. The urine was negative for albumin, sugar, ketones. I am not sure that this shows any evidence that she has active urinary tract infection. I would probably hold on antibiotic for now. We will do 3 sets of cardiac enzyme and check her fasting lipid profile. ____ Cardiology team continued all her medications and maybe hold the metformin in case they are planning to do another cardiac catheterization. JALEN WIGGINS MD DR: HARITHA/barrie JOB#: [id number] / [id number]
[2017-10-16 12:54] LABS: BACTERIA,URINE MANY /HPF (0-FEW); BILIRUBIN,URINE NEG (NEG); CLARITY,URINE TURBID; COLOR,URINE YELLOW; GLUCOSE,URINE 100 mg/dL (NEG); NITRITE,URINE POS (NEG); RBC,URINE OCC /HPF (0-2); SQUAMOUS EPITHELIAL CELL,UR FEW /LPF; UROBILINOGEN,URINE 0.2 mg/dL (0.2 mg/dL); WBC,URINE 21-40 /HPF (0-4)
[2017-10-16 14:00] VITALS: BP 108/58
[2017-10-16 19:24] VITALS: BP 163/75
[2017-10-16] MEDS: ATORVASTATIN CALCIUM 20 MG TABLET PO SCH (20:08)
--- NOTE | 2017-10-16 23:32 | PN ---
DATE: 10/16/2017 SUBJECTIVE: The patient is resting, slightly propped up in bed, in no apparent distress. She stated that she has had no more chest discomfort. She now has only 1 episode of diarrhea this morning, feeling generally much better, although she still continued to have some discomfort in her abdomen. Her appetite is much better today. She has been up and about without any complaint. OBJECTIVE: GENERAL: When I examined her, she looked somewhat pale, but no jaundice, cyanosis, no thyromegaly. No jugular venous distention. No limb edema. VITAL SIGNS: Her heart rate was 78, blood pressure 120/69, temperature was 97.3, respiratory rate was 18 and oxygen saturation was 96%. HEAD, EYES, EARS, NOSE AND THROAT: Normocephalic, atraumatic. NECK: Supple. HEART: Showed normal first and second heart sounds with no gallop, rub or murmur. CHEST: Clear to auscultation. No crepitation or rhonchi. ABDOMEN: Slightly distended, soft, nontender. NEUROLOGIC: She is awake, alert, responding appropriately and intact. She moves extremities without difficulty. She ambulates with a walker. Her intake and output are incompletely recorded. LABORATORY DATA: As of yesterday showed a serum sodium 133, potassium 4.5, chloride 98, bicarbonate 26, anion gap of 9, BUN 12, creatinine 0.7, estimated GFR was 79 mL per minute. Her glucose was 124, calcium was 8.8, magnesium was 1.9. Total bilirubin, AST, ALT, alkaline phosphatase were normal. Her total protein was 7.1, albumin 3.6. Her white cell count was 6600, hemoglobin was 12.5, hematocrit 37, MCV 93, and platelet count of 206,000. So far, her UA and stool for C. diff still pending at the time of this dictation. ASSESSMENT: 1. Fatigue, generalized weakness secondary to diarrhea and poor oral intake, feeling improving. Her diarrhea has largely subsided. She is tolerating her intake without any problem. 2. Intermittent nonspecific chest pain, likely related to diffuse small vessel disease. She is pain free today. 3. 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 Her troponin is mildly elevated. Other medical problems include coronary artery disease, status post PCI with stent. The patient has ST segment elevation, myocardial infarction, status post PCI with stent deployment. Other medical problems include hypertension, type 2 diabetes, hyperlipidemia. PLAN: To continue with all her current medications. Continue with physical and occupational therapy. I will repeat her lab work tomorrow and if she remains stable and chest pain free, she can be discharged home. JALEN WIGGINS MD DR: HARITHA/barrie JOB#: [id number] / [id number]
[2017-10-16 23:48] VITALS: BP 125/71
[2017-10-17 06:28] LABS: ALBUMIN 3.4 g/dL (3.4-5.0); CALCIUM 8.8 mg/dL (8.5-10.1); CREATININE 0.7 mg/dL (0.6-1.0); GFR 79.3; POTASSIUM 3.9 mmol/L (3.5-5.1); TOTAL BILIRUBIN 0.5 mg/dL (0.2-1.0); TOTAL PROTEIN 6.7 g/dL (6.4-8.2)
[2017-10-17 06:35] LABS: HEMATOCRIT 37.6 % (36.0-47.0); HEMOGLOBIN 12.6 g/dL (12.0-15.5); RED BLOOD COUNT 4.07 x10^6/uL (3.50-5.40); RED CELL DISTRIBUTION WIDTH 15.3 % (11.5-14.5)
[2017-10-17] MEDS: MAGNESIUM OXIDE 400 MG TABLET PO SCH (08:03)
[2017-10-17] MEDS: TICAGRELOR 90 MG TABLET. PO SCH (08:03)
[2017-10-17] MEDS: hydroCHLOROthiazide 12.5 MG CAPSULE PO SCH (08:03)
[2017-10-17] MEDS: LOSARTAN 50 MG TABLET. PO SCH (08:03)
[2017-10-17] MEDS: glipiZIDE 5 MG TABLET PO SCH (08:03)
[2017-10-17] MEDS: ASPIRIN 81 MG TAB.CHEW PO SCH (08:03)
[2017-10-17 08:04] VITALS: BP_DIAS 71
[2017-10-17] MEDS: METOPROLOL TART IMMED RELEASE 25 MG TABLET PO SCH (08:04)
[2017-10-17] MEDS: INSULIN LISPRO 300 UNITS/3 ML INSULN.PEN. SQ SCH (08:05)
[2017-10-17 10:00] VITALS: BP_SYST 69
--- NOTE | 2017-10-17 10:36 | PDOC ---
PROGRESS NOTES Assessment 1. Fatigue - improved. mgmt per PCP. 2. Intermittent nonspecific chest pain, likely related to diffuse small vessel disease. Resolved. Ambulated without reoccurrence. 3. 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 Mild troponin elevations. Currently angina free. Limited echo pending. 4. diarrhea - resolved. per PCP 4. Failure to thrive. - per PCP Office follow up on 11/13/17 at 2:15 in [place] office. Limited echo to be scheduled prior as outpatient. Subjective diarrhea resolved. CP resolved. No discomfort with ambulation. No palpitations , lightheadedness or syncope. No dyspnea. Objective Vital Signs Date Time Temp Pulse Resp B/P (MAP) Pulse Ox O2 Delivery O2 Flow Rate FiO2 10/17/17 08:04 82 125/71 10/17/17 08:00 Room Air 10/16/17 23:48 97.8 22 97 Intake and Output 10/17/17 07:00 Intake Total 960 ml Output Total 300 ml Balance 660 ml Intake Oral 960 ml Output Urine Total 300 ml # Voids 4 # Bowel Movements 1 Abdomen: Normal bowel sounds, Soft, No tenderness Heart: Regular rate, Normal S1, Normal S2 Extremities: No cyanosis, Normal pulses General: Alert, Oriented X3, Cooperative, No acute distress Lungs: Clear to auscultation Neuro: Normal speech, Strength at 5/5 X4 ext Psych/Mental Status: Mental status NL, Mood NL Review of Relevant I have reviewed the following items yusuf (where applicable) has been applied. Labs Laboratory Tests Test 10/15/17 16:42 10/15/17 16:45 10/15/17 20:50 10/16/17 05:00 Glucose (Fingerstick) 122 mg/dL (70-99) White Blood Count 6.6 x10^3/uL (4.0-11.0) Red Blood Count 4.00 x10^6/uL (3.50-5.40) Hemoglobin 12.5 g/dL (12.0-15.5) Hematocrit 37.2 % (36.0-47.0) Mean Corpuscular Volume 93 fL (79-100) Mean Corpuscular Hemoglobin 31 pg (25-35) Mean Corpuscular Hemoglobin Concent 34 g/dL (31-37) Red Cell Distribution Width 15.3 % (11.5-14.5) Platelet Count 206 x10^3/uL (140-400) Sodium Level 133 mmol/L (136-145) Potassium Level 4.5 mmol/L (3.5-5.1) Chloride Level 98 mmol/L (98-107) Carbon Dioxide Level 26 mmol/L (21-32) Anion Gap 9 (6-14) Blood Urea Nitrogen 12 mg/dL (7-20) Creatinine 0.7 mg/dL (0.6-1.0) Estimated GFR (Cockcroft-Gault) 79.3 BUN/Creatinine Ratio 17 (6-20) Glucose Level 124 mg/dL (70-99) Calcium Level 8.8 mg/dL (8.5-10.1) Magnesium Level 1.9 mg/dL (1.8-2.4) Total Bilirubin 0.4 mg/dL (0.2-1.0) Aspartate Amino Transf (AST/SGOT) 45 U/L (15-37) Alanine Aminotransferase (ALT/SGPT) 47 U/L (14-59) Alkaline Phosphatase 105 U/L (46-116) Troponin I Quantitative 0.676 ng/mL (0-0.055) 0.796 ng/mL (0-0.055) 0.706 ng/mL (0-0.055) Total Protein 7.1 g/dL (6.4-8.2) Albumin 3.6 g/dL (3.4-5.0) Albumin/Globulin Ratio 1.0 (1.0-1.7) Triglycerides Level 48 mg/dL (0-150) Cholesterol Level 130 mg/dL (0-200) LDL Cholesterol, Calculated 58 mg/dL (0-100) VLDL Cholesterol, Calculated 9 mg/dL (0-40) Non-HDL Cholesterol Calculated 67 mg/dL (0-129) HDL Cholesterol 63 mg/dL (40-60) Cholesterol/HDL Ratio 2.0 Test 10/16/17 07:57 10/16/17 11:45 10/16/17 12:30 10/16/17 15:23 Glucose (Fingerstick) 139 mg/dL (70-99) 228 mg/dL (70-99) Urine Collection Type Unknown Urine Color Yellow Urine Clarity Turbid Urine pH 6.5 Urine Specific Ambler 1.015 Urine Protein Neg (NEG-TRACE) Urine Glucose (UA) 100 mg/dL (NEG) Urine Ketones (Stick) Neg mg/dL (NEG) Urine Blood Neg (NEG) Urine Nitrite Pos (NEG) Urine Bilirubin Neg (NEG) Urine Urobilinogen Dipstick 0.2 mg/dL (0.2 mg/dL) Urine Leukocyte Esterase Mod (NEG) Urine RBC Occ /HPF (0-2) Urine WBC 21-40 /HPF (0-4) Urine Squamous Epithelial Cells Few /LPF Urine Bacteria Many /HPF (0-FEW) Nasal Screen MRSA (PCR) Negative (Negative) Test 10/16/17 16:52 10/16/17 19:04 10/17/17 05:42 10/17/17 07:55 Glucose (Fingerstick) 162 mg/dL (70-99) 229 mg/dL (70-99) 138 mg/dL (70-99) White Blood Count 6.0 x10^3/uL (4.0-11.0) Red Blood Count 4.07 x10^6/uL (3.50-5.40) Hemoglobin 12.6 g/dL (12.0-15.5) Hematocrit 37.6 % (36.0-47.0) Mean Corpuscular Volume 92 fL (79-100) Mean Corpuscular Hemoglobin 31 pg (25-35) Mean Corpuscular Hemoglobin Concent 34 g/dL (31-37) Red Cell Distribution Width 15.3 % (11.5-14.5) Platelet Count 208 x10^3/uL (140-400) Sodium Level 136 mmol/L (136-145) Potassium Level 3.9 mmol/L (3.5-5.1) Chloride Level 99 mmol/L (98-107) Carbon Dioxide Level 29 mmol/L (21-32) Anion Gap 8 (6-14) Blood Urea Nitrogen 8 mg/dL (7-20) Creatinine 0.7 mg/dL (0.6-1.0) Estimated GFR (Cockcroft-Gault) 79.3 BUN/Creatinine Ratio 11 (6-20) Glucose Level 134 mg/dL (70-99) Calcium Level 8.8 mg/dL (8.5-10.1) Total Bilirubin 0.5 mg/dL (0.2-1.0) Aspartate Amino Transf (AST/SGOT) 34 U/L (15-37) Alanine Aminotransferase (ALT/SGPT) 43 U/L (14-59) Alkaline Phosphatase 95 U/L (46-116) Total Protein 6.7 g/dL (6.4-8.2) Albumin 3.4 g/dL (3.4-5.0) Albumin/Globulin Ratio 1.0 (1.0-1.7) Medications Current Medications Acetaminophen/ Codeine Phosphate (Tylenol #3) 1 tab PRN Q4HRS PRN PO PAIN; Start 10/15/17 at 17:00 Metoprolol Tartrate (Lopressor) 12.5 mg BID PO Last administered on 10/17/17 08:04; Start 10/15/17 at 21:00 Ticagrelor (Brilinta) 90 mg BID PO Last administered on 10/17/17 08:03; Start 10/15/17 at 21:00 Aspirin (Children'S Aspirin) 81 mg DAILYWBKFT PO Last administered on 08:03; Start 10/16/17 at 08:00 Atorvastatin Calcium (Lipitor) 40 mg QHS PO Last administered on 10/16/17 20: 08; Start 10/15/17 at 21:00 Glipizide (Glucotrol) 5 mg BIDBFRMEAL PO Last administered on 10/17/17 08:03; Start 10/15/17 at 17:00 Losartan Potassium (Cozaar) 50 mg DAILY PO Last administered on 10/17/17 08:03 ; Start 10/16/17 at 09:00 Magnesium Oxide (Magnesium Oxide) 400 mg DAILY PO Last administered on 08:03; Start 10/16/17 at 09:00 Insulin Human Lispro (HumaLOG) 0-5 UNITS TIDWMEALS SQ Last administered on 10/16 17:23; Start 10/15/17 at 17:00 Dextrose 12.5 gm PRN Q15MIN PRN IV SEE COMMENTS; Start 10/15/17 at 16:45 Hydrochlorothiazide (Microzide) 12.5 mg DAILY PO Last administered on 08:03; Start 10/16/17 at 09:00 Active Scripts Active Reported Tylenol With Codeine #3 Tablet (Acetaminophen With Codeine) 1 Each Tablet 1 Tab PO Q4-6HRS Brilinta (Ticagrelor) 90 Mg Tablet 90 Mg PO Metoprolol Tartrate 25 Mg Tablet 0.5 Tab PO BID Metformin Hcl 500 Mg Tablet 1 Tab PO BID Mag-Oxide (Magnesium Oxide) 400 Mg Tablet 1 Tab PO DAILY Losartan-Hctz 50-12.5 Mg Tab (Losartan/Hydrochlorothiazide) 1 Each Tablet 1 Tab PO DAILY Glipizide 5 Mg Tablet 1 Tab PO BID Atorvastatin Calcium 40 Mg Tablet 1 Tab PO DAILY Aspirin 81 Mg Tab.chew 81 Mg PO DAILY Vitals/I & O Vital Sign - Last 24 Hours 10/16/17 10/16/17 10/16/17 10/16/17 10:28 14:00 19:24 20:08 Temp 97.3 97.6 97.9 Pulse 78 84 91 91 Resp 18 18 22 B/P (MAP) 120/69 (86) 108/58 (75) 163/75 (104) 163/75 Pulse Ox 96 97 98 O2 Delivery Room Air Room Air Room Air 10/16/17 10/17/17 10/17/17 10/17/17 23:48 08:00 08:03 08:04 Temp 97.8 Pulse 82 82 82 Resp 22 B/P (MAP) 125/71 (89) 125/71 125/71 Pulse Ox 97 O2 Delivery Room Air Room Air Intake and Output 10/16/17 10/16/17 10/17/17 15:00 23:00 07:00 Intake Total 480 ml 360 ml 120 ml Output Total 300 ml Balance 180 ml 360 ml 120 ml EVERETTE PRATER APRN October 17, 2017 10:36
[2017-10-17] MEDS ORDERED: LEVO500T59 PO (13:54)
--- NOTE | 2017-10-17 14:21 | DS ---
DATE OF DISCHARGE: 10/17/2017 HISTORY OF PRESENT ILLNESS: The patient is an 87-year-old female patient who was admitted with a complaint of chest discomfort that has eventually resolved. The patient has ambulated without any recurrence and she also complained of fatigue, was found to have persistent ST segment elevation likely due to setting of anterior septal aneurysm. Her troponin was mildly elevated. She did have diarrhea, may be related to the fact that she was on metformin. We have not managed to get any stool for C. diff and her diarrhea has largely subsided. Her urine culture taken on 10/08/2017 showed that she was positive for Klebsiella pneumoniae. As she remained hemodynamically stable and chest pain free, a decision was made to discharge her home to follow with the Cardiology team, told to have an echocardiogram to be done as an outpatient. PHYSICAL EXAMINATION: GENERAL: When I examined her today, she looked well and was clearly in no apparent respiratory distress, pale, but no jaundice, cyanosis, or thyromegaly. No jugular venous distension. No limb edema. VITAL SIGNS: Her heart rate was 77, blood pressure was 125/71, temperature was 98.2, respiratory rate was 18 and oxygen saturation was 94% on room air. HEAD, EYES, EARS, NOSE AND THROAT: Showed normocephalic, atraumatic. NECK: Supple. HEART: Showed normal first and second sounds. No gallop, rub or murmur. CHEST: Clear to auscultation. No crepitation or rhonchi. ABDOMEN: Distended, soft, nontender. No guarding or rigidity. No organomegaly. Hernial orifice intact. Bowel sounds normal. NEUROLOGIC: She was awake, alert, responding appropriately. Cranial nerves intact. EXTREMITIES: She moves extremities without difficulty. She ambulates without assistance or assistive devices. LABORATORY DATA: Showed a white cell count of 6000, hemoglobin 13, hematocrit 37, MCV 92, and platelet count of 208,000. Her chemistry showed a serum sodium 136, potassium 3.9, chloride 99, bicarbonate 29, anion gap of 8, BUN 8, creatinine 0.7, estimated GFR was 79 mL per minute. Her glucose was 134, calcium was 8.8. Total bilirubin, AST, ALT, alkaline phosphatase were normal. Her total protein was 6.7, albumin was 3.4. DISCHARGE MEDICATIONS: She was discharged home to continue on following medication, levofloxacin 500 mg once a day for 7 days, metformin extended release 500 mg twice a day, Tylenol with Codeine 1 tablet every 4-6 hours, aspirin 81 mg once a day, atorvastatin 40 mg at bedtime, glipizide 5 mg twice a day, losartan/hydrochlorothiazide 50/12.5 mg once a day, magnesium oxide 400 mg daily, metoprolol tartrate 25 mg half a tablet twice a day and Brilinta 90 mg twice a day. FINAL DISCHARGE DIAGNOSES: Fatigue, generalized weakness improved, intermittent nonspecific chest pain, resolved. Persistent anterior ST segment elevation likely due to the setting of anterior septal aneurysm, diarrhea likely secondary to metformin, resolved. Poor appetite has also resolved. The patient will be discharged home to follow with her Cardiology team and to have an echocardiogram as an outpatient. JALEN WIGGINS MD DR: HARITHA/barrei JOB#: [id number] / [id number]
== END 2017-10-17 14:13 | disposition home or self-care (01) | DRG 393 ==
LOC: 1 SOUTH 14:35 → ICU 10-16 14:04
PROVIDERS: ADMIT Internal Medicine; ATTEND Internal Medicine
DX: K52.1 Toxic gastroenteritis and colitis (principal); I21.9 Acute myocardial infarction, unspecified; I25.3 Aneurysm of heart; R62.7 Adult failure to thrive; I25.10 Atherosclerotic heart disease of native coronary artery without angina pectoris; E78.5 Hyperlipidemia, unspecified; I10 Essential (primary) hypertension; M48.061 Spinal stenosis, lumbar region without neurogenic claudication; M19.90 Unspecified osteoarthritis, unspecified site; T38.3X5A Adverse effect of insulin and oral hypoglycemic [antidiabetic] drugs, initial encounter; Y92.89 Other specified places as the place of occurrence of the external cause; Z95.5 Presence of coronary angioplasty implant and graft; Z87.440 Personal history of urinary (tract) infections; Z85.3 Personal history of malignant neoplasm of breast; Z90.10 Acquired absence of unspecified breast and nipple; Z90.49 Acquired absence of other specified parts of digestive tract; Z90.710 Acquired absence of both cervix and uterus; Z90.79 Acquired absence of other genital organ(s); Z90.722 Acquired absence of ovaries, bilateral; Z79.82 Long term (current) use of aspirin; Z79.84 Long term (current) use of oral hypoglycemic drugs; Z80.0 Family history of malignant neoplasm of digestive organs; Z82.49 Family history of ischemic heart disease and other diseases of the circulatory system
CPT/HCPCS: 36415; 71250; 80053; 80061; 81001; 82947; 83735; 84484; 85027; 87086; 87186; 87641; 93005; J1815

== ENCOUNTER → 2017-11-04 | Outpatient (CLI) | payer MEDICARE, BC ==
[2017-10-17 08:04] VITALS: BP_DIAS 71
[2017-10-17 10:00] VITALS: BP_SYST 69
[~2017-11-04] MED LIST changes: +LEVO500T59 PO
--- NOTE | 2017-11-04 11:53 | CARD ---
MR#: [id number] Date of Study: 11/04/2017 Ordering Physician: LUCINA PADILLA, Referring Physician: LUCINA PADILLA, Tech: PAULETTE Kelly APPROVED REPORT EXAM: Two-dimensional and M-mode echocardiogram with Doppler and color Doppler. Other Information Quality : Average INDICATION CAD ST Elevation OK 2D DIMENSIONS Left Atrium(2D)3.2 (1.6-4.0cm)IVSd1.3 (0.7-1.1cm) Aortic Root(2D)3.6 (2.0-3.7cm)LVDd4.2 (3.9-5.9cm) LVOT Diameter2.2 (1.8-2.4cm)PWd1.2 (0.7-1.1cm) LVDs2.6 (2.5-4.0cm)FS (%) 32.0 % SV52.8 mlLVEF(%)35.0 (>50%) Aortic Valve AoV Peak Christopher.137.0cm/Kayleigh Peak GR.7.5mmHg LVOT Peak Christopher.108.8cm/sAVA (VMAX)3.03cm2 Mitral Valve MV E Cbujrpsr46.3cm/sMV DECEL VELG27ew MV A Atrxppcm618.6cm/sE/A Ratio0.4 Tricuspid Valve TR P. Eftnavbg857of/sRAP [id number] TR Peak Gr.16mjOwLXHL20lvCz LEFT VENTRICLE The left ventricle is normal size. There is mild to moderate concentric left ventricular hypertrophy. The left ventricular systolic function is normal and the ejection fraction is within normal range. T he Ejection Fraction is 65-70%. There is normal LV segmental wall motion. The left ventricular diasto lic function and filling is normal for age. RIGHT VENTRICLE The right ventricle is normal size. There is normal right ventricular wall thickness. The right ventr icular systolic function is normal. ATRIA The left atrium size is normal. The right atrium size is normal. The interatrial septum is intact wit h no evidence for an atrial septal defect or patent foramen ovale as noted on 2-D or Doppler imaging. AORTIC VALVE The aortic valve is trileaflet. Doppler and Color Flow revealed no significant aortic regurgitation. There is no significant aortic valvular stenosis. MITRAL VALVE The mitral valve is normal in structure and function. There is no mitral valve stenosis. Doppler and Color-flow revealed trace to mild mitral regurgitation. TRICUSPID VALVE The tricuspid valve is normal in structure and function. Doppler and Color Flow revealed trace tricus pid regurgitation. There is no tricuspid valve stenosis. PULMONIC VALVE The pulmonary valve is normal in structure and function. Doppler and Color Flow revealed no pulmonic valvular regurgitation. There is no pulmonic valvular stenosis. GREAT VESSELS The aortic root is normal in size. The IVC is normal in size and collapses >50% with inspiration. PERICARDIAL EFFUSION There is no pleural effusion. There is no evidence of significant pericardial effusion. Critical Notification Critical Value: No <Conclusion> The left ventricular systolic function is normal and the ejection fraction is within normal range. Th e Ejection Fraction is 65-70%. There is normal LV segmental wall motion. Signed by : Todd Zapata, Electronically Approved : 11/04/2017 11:52:42
== END | disposition home or self-care (01) ==
LOC: ECHO 09:50
PROVIDERS: ATTEND Internal Medicine Cardiovascular Disease
DX: I21.02 ST elevation (STEMI) myocardial infarction involving left anterior descending coronary artery (principal); I34.0 Nonrheumatic mitral (valve) insufficiency; I51.7 Cardiomegaly; I10 Essential (primary) hypertension; E11.9 Type 2 diabetes mellitus without complications
CPT/HCPCS: 93306

== ENCOUNTER → 2018-11-03 | Outpatient (CLI) | payer MEDICARE, BC ==
[~2018-11-03] MED LIST changes: +METF500T16 PO; -METF500T5 PO
--- NOTE | 2018-11-03 13:21 | CARD ---
MR#: [id number] Date of Study: 11/03/2018 Ordering Physician: LUCINA PADILLA, Referring Physician: LUCINA PADILLA, Tech: Robyn Underwood RDCS APPROVED REPORT EXAM: Two-dimensional and M-mode echocardiogram with Doppler and color Doppler. Other Information Quality : AverageHR: 70bpm Rhythm : NSR INDICATION CAD 2D DIMENSIONS RVDd2.9 (2.9-3.5cm)Left Atrium(2D)2.9 (1.6-4.0cm) IVSd1.1 (0.7-1.1cm)Aortic Root(2D)3.2 (2.0-3.7cm) LVDd4.0 (3.9-5.9cm)LVOT Diameter2.2 (1.8-2.4cm) PWd0.9 (0.7-1.1cm)LVDs2.3 (2.5-4.0cm) FS (%) 42.6 %SV50.9 ml LVEF(%)74.3 (>50%) M-Mode DIMENSIONS Left Atrium(MM)2.76 (2.5-4.0cm)Aortic Root3.19 (2.2-3.7cm) Aortic Valve AoV Peak Christopher.118.0cm/sAoV VTI22.2cm AO Peak GR.5.6mmHgLVOT Peak Christopher.105.0cm/s LVOT VTI 23.73cmAO Mean GR.3mmHg YOLA (VMAX)3.91wb0UCW (VTI)3.90cm2 Mitral Valve MV E Frobkcys67.0cm/sMV DECEL JBBG147ll MV A Lkvtcgil83.2cm/sE/A Ratio0.7 Pulmonary Valve PV Peak Isimatar519.9cm/sPV Peak Grad.6mmHg Tricuspid Valve TR P. Yinjihay143cg/sRAP [id number] TR Peak Gr.01piBjIOJJ46akOr LEFT VENTRICLE The left ventricle is normal size. There is normal left ventricular wall thickness. The left ventricu lar systolic function is normal. The Ejection Fraction is 65-70%. There is normal LV segmental wall m otion. Transmitral Doppler flow pattern is Grade I-abnormal relaxation pattern. RIGHT VENTRICLE The right ventricle is normal size. There is normal right ventricular wall thickness. The right ventr icular systolic function is normal. ATRIA The left atrium size is normal. The right atrium size is normal. The interatrial septum is intact wit h no evidence for an atrial septal defect or patent foramen ovale as noted on 2-D or Doppler imaging. AORTIC VALVE The aortic valve is normal in structure and function. The aortic valve is trileaflet. Doppler and Col or Flow revealed no significant aortic regurgitation. There is no significant aortic valvular stenosi s. There is no aortic valvular vegetation. MITRAL VALVE The mitral valve is normal in structure and function. There is no evidence of mitral valve prolapse. There is no mitral valve stenosis. Doppler and Color-flow revealed trace mitral regurgitation. TRICUSPID VALVE The tricuspid valve is normal in structure and function. Doppler and Color Flow revealed mild tricusp id regurgitation. The PA pressure was estimated at 29 mmHg. There is no tricuspid valve prolapse or v egetation. There is no tricuspid valve stenosis. PULMONIC VALVE The pulmonic valve is not well visualized. GREAT VESSELS The aortic root is normal in size. The ascending aorta is normal in size. The IVC is normal in size a nd collapses >50% with inspiration. PERICARDIAL EFFUSION There is no evidence of significant pericardial effusion. Critical Notification Critical Value: No <Conclusion> The left ventricular systolic function is normal. The Ejection Fraction is 65-70%. There is normal LV segmental wall motion. Transmitral Doppler flow pattern is Grade I-abnormal relaxation pattern. Trace mitral regurgitation. Mild tricuspid regurgitation. The PA pressure was estimated at 29 mmHg. There is no evidence of significant pericardial effusion. Signed by : Cameron Edge, Electronically Approved : 11/03/2018 13:20:56
== END | disposition home or self-care (01) ==
LOC: ECHO 12:33
PROVIDERS: ATTEND Internal Medicine Cardiovascular Disease
DX: I07.1 Rheumatic tricuspid insufficiency (principal); I25.5 Ischemic cardiomyopathy; I25.10 Atherosclerotic heart disease of native coronary artery without angina pectoris
CPT/HCPCS: 93306